=== PATIENT | female | born 1960 | race Caucasian/White ===

== ENCOUNTER 2017-04-11 11:31 | Outpatient (CLI) | payer OTHER ==
--- NOTE | 2017-04-11 14:58 | RAD ---
LEFT SHOULDER 3 VIEWS: HISTORY: Chronic pain without trauma. COMPARISON: None. FINDINGS: Mild osteoarthritic disease of acromioclavicular joint. There are osteophytes of the humeral head. Coracoid appears fractured. Visualized ribs are unremarkable. No acute fracture or malalignment. IMPRESSION: Concern for fracture through the base of the coracoids. POS: YAS
--- NOTE | 2017-04-11 15:28 | RAD ---
CERVICAL SPINE 4 VIEWS: HISTORY: Pain for a year, no trauma. COMPARISON: None. FINDINGS: The C1-2 articulation is normal on the open-mouth odontoid view. There is moderate to severe degene rative disk space height loss at C6-7 with anterior and posterior disk-osteophyte complexes. There is grade I on C5 over C6 anterolisthesis. Moderate facet arthropathy at C2-3 and C3-4 with moderate neural foraminal narrowing at C3-4 on the left. IMPRESSION: 1. Mild spondylosis worst at C6-7. 2. Facet arthropathy at C2-3 and C3-4 with left-sided C3-4 neural foraminal narrowing. MRI may be necessary in this patient. POS: CASSANDRA
== END 2017-04-11 11:32 | disposition home or self-care (01) ==
LOC: MADRAD 11:31
PROVIDERS: ATTEND Family Medicine
DX: M54.2 Cervicalgia (principal); M25.512 Pain in left shoulder; M47.812 Spondylosis without myelopathy or radiculopathy, cervical region
CPT/HCPCS: 72050

== ENCOUNTER 2019-05-29 11:57 | Outpatient (CLI) | payer OTHER ==
[2019-05-29 12:48] LABS: ALT (SGPT) 17 U/L (8-55); AST (SGOT) 20 U/L (5-34); Albumin 4.5 g/dL (3.4-4.8); Alkaline Phosphatase 77 U/L (40-150); Anion Gap 14 mmol/L (10-20); BUN (Urea Nitrogen) 11 mg/dL (9.8-20.1); Bilirubin, Total 0.4 mg/dL (0.2-1.2); Calc. Creatinine Clearance 0 mL/min (70-130); Calcium 9.4 mg/dL (7.8-10.44); Carbon Dioxide 25 mmol/L (23-31); Chloride 106 mmol/L (98-107); Estimated GFR-MDRD 67; Globulin 3.6 g/dL (2.4-3.5); Glucose 104 mg/dL (80-115); Potassium 4.5 mmol/L (3.5-5.1); Protein, Total 8.1 g/dL (6.0-8.3); Sodium 140 mmol/L (136-145)
[2019-05-29 12:58] LABS: #Basophils 0.1 thou/uL (0.0-0.2); #Eosinphils 0.1 thou/uL (0.0-0.7); #Lymphocytes 2.2 thou/uL (1.20-3.40); #Monocytes 0.5 thou/uL (0.11-0.59); #Neutrophils 4.5 thou/uL (1.40-6.50); %Basophils 0.8 % (0.0-1.0); %Eosinophils 1.8 % (0.0-10.0); %Lymphocytes 29.6 % (21.0-51.0); %Monocytes 6.9 % (0.0-10.0); %Neutrophils 60.9 % (42.0-75.0); Hemoglobin 13.4 g/dL (12.0-16.0); Large Platelets SLIGHT; MDiff Complete? YES; Mean Corpuscular HGB CONC 31.5 g/dL (32.0-36.0); Mean Corpuscular Hemoglobin 28.1 pg (27.0-31.0); Mean Corpuscular Volume 89.2 fL (78.0-98.0); Mean Platelet Volume 13.1 fL (7.4-10.4); Platelet Count 167 thou/uL (130-400); Platelet Morphology Comment Appears Adequate; RBC Distribution Width 12.4 % (11.5-14.5); RBC Morphology Normal; Red Blood Cell (RBC) Count 4.76 mill/uL (4.20-5.40); White Blood Cell (WBC) Count 7.5 thou/uL (4.8-10.8)
== END 2019-05-29 11:58 | disposition home or self-care (01) ==
LOC: MADLABBHPM 11:57
PROVIDERS: ATTEND Family Medicine
DX: I49.9 Cardiac arrhythmia, unspecified (principal)
CPT/HCPCS: 80053; 84443; 85025; 93005; 93010

== ENCOUNTER 2021-08-27 12:07 | Emergency (ER) | payer BC, OTHER ==
[~2021-08-27 12:07] MED LIST: Lactated Ringer's 1,000 ML BAG ONE
[2021-08-27] MEDS ORDERED: Lactated Ringer's 1,000 ML ONE (12:49)
[2021-08-27] MEDS ORDERED: Ondansetron PF 4 MG/2 ML Vial ONE ×2 (12:49→18:31)
[2021-08-27 13:09] LABS: #Lymphocytes 1.2 thou/uL (1.20-3.40); #Monocytes 0.2 thou/uL (0.11-0.59); #Neutrophils 3.9 thou/uL (1.40-6.50); %Basophils 0.2 % (0.0-1.0); %Eosinophils 0.1 % (0.0-10.0); %Lymphocytes 21.7 % (21.0-51.0); %Monocytes 4.5 % (0.0-10.0); %Neutrophils 73.5 % (42.0-75.0); Hemoglobin 14.3 g/dL (12.0-16.0); Mean Corpuscular HGB CONC 31.2 g/dL (32.0-36.0); Mean Corpuscular Hemoglobin 28.7 pg (27.0-31.0); Mean Platelet Volume 12.3 fL (7.4-10.4); Platelet Count 144 thou/uL (130-400); RBC Distribution Width 12.2 % (11.5-14.5); Red Blood Cell (RBC) Count 4.98 mill/uL (4.20-5.40); White Blood Cell (WBC) Count 5.3 thou/uL (4.8-10.8)
[2021-08-27 13:10] LABS: MDiff Complete? YES; Manual Diff?? NO
[2021-08-27 13:24] LABS: ALT (SGPT) 34 U/L (8-55); AST (SGOT) 37 U/L (5-34); Albumin 3.8 g/dL (3.4-4.8); Alkaline Phosphatase 58 U/L (40-110); Anion Gap 13 mmol/L (10-20); BUN (Urea Nitrogen) 7 mg/dL (9.8-20.1); Bilirubin, Total 0.3 mg/dL (0.2-1.2); CK (CPK) 95 U/L (29-168); Calc. Creatinine Clearance 0 mL/min (70-130); Calcium 8.2 mg/dL (7.8-10.44); Carbon Dioxide 19 mmol/L (23-31); Chloride 109 mmol/L (98-107); Globulin 3.3 g/dL (2.4-3.5); Glucose 114 mg/dL (80-115); Lipase 22 U/L (8-78); Magnesium 1.7 mg/dL (1.6-2.6); Potassium 3.4 mmol/L (3.5-5.1); Protein, Total 7.1 g/dL (5.8-8.1); Sodium 138 mmol/L (136-145)
[2021-08-27] MEDS ORDERED: Potassium Chloride 20 MEQ TAB ONE ×2 (14:02→14:03)
[2021-08-27] MEDS ORDERED: Albuterol Sulfate 2.5 mg/3 ml Neb ONE (17:12)
[2021-08-27] MEDS ORDERED: Albuterol 200 PUFF (6.7GM INHALER) ONE (17:14)
[2021-08-27] MEDS ORDERED: Diphenoxylate HCl/Atropine Tablet ONE (18:31)
== END 2021-08-27 19:40 | disposition home or self-care (01) ==
LOC: MADERS 12:07
DX: R19.7 Diarrhea, unspecified (principal); R53.1 Weakness; R11.0 Nausea
CPT/HCPCS: 36415; 71045; 80053; 82550; 83605; 83690; 83735; 84484; 85025; 93005; 96374; 96376; J2405; J7120; J7611

== ENCOUNTER 2022-09-20 16:42 | Outpatient (CLI) | payer BC | END 2022-09-20 16:43 | disposition home or self-care (01) | LOC: MADLAB 16:42 → MADRAD 16:43 | PROVIDERS: ATTEND Family Medicine | DX: M54.2 Cervicalgia (principal); M50.30 Other cervical disc degeneration, unspecified cervical region | CPT/HCPCS: 72050 ==